=== PATIENT | female | born 1980 ===

== ENCOUNTER 2017-05-26 07:00 | Day surgery (SDC) | payer OTHER ==
[~2017-05-26 07:00] MED LIST: BIOTIN5000 MCG PO; RELAX & SLEEP1 EACH PO; TOPAMAX50 MG PO; TOPROL XL25 M1 PO
== END 2017-05-26 12:50 | disposition home or self-care (01) ==
LOC: CIR.AMB 07:00
DX: C73 Malignant neoplasm of thyroid gland (principal)

== ENCOUNTER 2017-06-16 07:26 | Day surgery (SDC) | payer OTHER ==
[2017-06-16] MEDS ORDERED: PERCOCET 5-3251 EACH PO (11:23)
== END 2017-06-16 15:45 | disposition home or self-care (01) ==
LOC: CIR.AMB 07:26
DX: C73 Malignant neoplasm of thyroid gland (principal)